=== PATIENT | female | born 1980 | race Caucasian/White ===

== ENCOUNTER → 2017-07-18 | Outpatient (REF) | payer OTHER | LOC: M SFHCLERA 14:18 | DX: R39.9 Unspecified symptoms and signs involving the genitourinary system (principal) ==

== ENCOUNTER → 2017-12-10 | Outpatient (CLI) | payer OTHER | LOC: M LRY 12:10 | DX: R10.9 Unspecified abdominal pain (principal) | CPT/HCPCS: 74021; 87086 ==

== ENCOUNTER → 2017-12-10 | Outpatient (REF) | payer OTHER ==
[2017-12-10 19:11] LABS: CHLAMYDIA DNA AMPLIFICATION NEGATIVE (NEGATIVE); GC DNA AMPLIFICATION NEGATIVE (NEGATIVE)
== END ==
LOC: M SFHCLERA 11:52
DX: R10.9 Unspecified abdominal pain (principal)